=== PATIENT | female | born 1970 | race Caucasian/White ===

== ENCOUNTER 2016-08-25 18:47 | Emergency (ER) | payer OTHER ==
[~2016-08-25] VITALS: Ht 167.6 cm; Wt 84.1 kg
[~2016-08-25 18:47] MED LIST: ACAI500C PO; ALBU18HF INH; ALBU2.5V4 INHALATION; AMOX500C2 PO; CLAR250T PO; CYAN500 PO; HYDR25CA PO; KRIL1CAP12 PO; LISI-567 PO; MULT-1018 PO; OMEP20CA11 PO; OXYC1TAB24 PO; VITA100T4 PO
[2016-08-25 18:51] VITALS: BP 158/104; PULSE 96; RESP 16; O2SAT 98
--- NOTE | 2016-08-25 19:10 | ED.REPORT ---
HPI-General Illness Date of Service Aug 25, 2016 ED Provider: Tigre Ren DO A 45 year old female with a history of urosepsis, hypertension and lactose intolerance with diarrhea presents to the ED complaining of abdominal pain. The pain began just over a week ago and has continued intermittently since. The pt describes the pain as "stabbing" in the right side of her abdomen and left flank. This is accompanied by fatigue, lack of appetite, nausea, vomiting and worsened diarrhea. The pt has not taken her medications in a week due to her abdominal pain. Nursing Notes Stated Complaint: POSSIBLE KIDNEY INFECTION Chief Complaint: Female Abdominal Pain Nursing Notes Reviewed: Yes Allergies: Coded Allergies: codeine (Verified Allergy, Unknown, 08/25/16) methadone (Verified Allergy, Unknown, 08/25/16) tramadol (Verified Allergy, Unknown, 08/25/16) Scheduled Acai Cuello Extract (Acai Cuello) 500 Mg Capsule 1,000 MG PO DAILY Amoxicillin (Amoxicillin) 500 Mg Capsule 1,000 MG PO BID Clarithromycin (Clarithromycin) 250 Mg Tablet Unknown Dose PO BID Cyanocobalamin (Vitamin B12) 500 Mcg Tablet 1,000 MCG PO DAILY Krill/[place]-3/Dha/Epa/Lipids (Krill Oil 300 mg Softgel) 1 Each Capsule 1 EACH PO DAILY Lisinopril (Lisinopril) 20 Mg Tablet 20 MG PO DAILY Multivitamin (Multi Vitamin Daily) 1 Each Tablet 1 EACH PO DAILY Omeprazole (Omeprazole) 20 Mg Capsule.dr 40 MG PO DAILY Vitamin B Complex 100 No.2 (B-100 Complex) 100 Mg Tablet.er 100 MG PO DAILY Scheduled PRN Albuterol Neb Soln (Albuterol Neb Soln) 2.5 Mg/3 Ml Vial.neb 2.5 MG INHALATION Q4H PRN PRN sobn Albuterol Sulfate (Ventolin HFA Inhaler) 200 Puff/18 Gm Inhaler 2 PUFF INH Q4 PRN PRN For Wheezing Hydroxyzine Pamoate (Vistaril) 25 Mg Capsule 25 MG PO BID PRN PRN For Itching oxyCODONE-Acetaminophen 5-325 mg (oxyCODONE-Acetaminophen 5-325 mg) 1 Each Tablet 1 TAB PO Q6H PRN PRN For Pain General Time Seen by MD: 19:10 Chief Complaint Abdominal pain Hx Obtained From: Patient, Spouse Arrived By: Walk-in Sudden in Onset?: No Onset Occurred: More than a week ago... Symptom Duration: Intermittent Recent Healthcare: No recent hospitalization, Recent doctor visit Similar Sx Previous: Yes Past Medical History Past Medical History urosepsis hypertension arthritis lactose intolerance Past Surgical History bilateral knees reconstructive surgery on bilateral feet Reports: Tubal ligation Smoking History Former Smoker (quit 2012) Social History Other Social History: Good social support Ambulatory Status Independent Review of Systems loss of appetite Full Review of Systems Constitutional: Reports: Fatigue Cardiovascular: Denies: Chest pain GI: Reports: Abdominal pain, Diarrhea, Nausea, Vomiting Female: Reports: Flank pain, Denies: Dysuria Complete sys rev & neg: except as marked. Physical Exam Vital Signs Vital Signs Date Time Temp Pulse Resp B/P Pulse Ox O2 Delivery O2 Flow Rate FiO2 08/25/16 18:51 36.4 96 16 158/104 98 Room Air Initial VS: Reviewed General/Constitutional: Awake, Alert Head / Eyes: Atraumatic, Normocephalic, PERRL, EOMI ENT: Atraumatic, Airway patent, Mucous membranes moist Neck: Atraumatic, Supple, Full range of motion Respiratory / Chest: Atraumatic, Breath sounds NL, Breath sounds = bilat, No respiratory distress Cardiovascular: Heart rate NL, Regular rhythm, Heart sounds NL Abdomen: Atraumatic, Soft mild RLQ tenderness Back: Atraumatic, Full range of motion Upper Extremities Upper Extremity / MS: Atraumatic, Full range of motion Lower Extremity / Pelvis / MS: Atraumatic, Full range of motion Skin: Atraumatic, Color NL, No rash, Warm, Dry Neurologic: Oriented X3, Speech NL, No motor deficits, No sensory deficits Psychiatric: Affect NL, Mood NL Interpretation & Diagnostics Lab Results Interpretation Result Diagram: 08/25/16195308/25/161953 Test 08/25/16 19:10 08/25/16 19:54 Urine Color Yellow (YELLOW) Urine Appearance Clear (CLEAR,HAZY) Urine pH 7.0 (5.0-8.0) Urine Specific [place] 1.010 (1.003-1.035) Urine Protein 30mg/dL (NEG,TRACE) Urine Glucose (UA) Negativemg/dL (NEGATIVE) Urine Ketones Negativemg/dL (NEGATIVE) Urine Occult Blood Negative (NEGATIVE) Urine Nitrite Negative (NEGATIVE) Urine Bilirubin Negative (NEGATIVE) Urine Urobilinogen Normalmg/dL (NORMAL) Urine Leukocyte Esterase Trace (NEGATIVE) Urine RBC 0-2/hpf (0-2) Urine WBC 6-10/hpf (0-5) Urine Epithelial Cells Many/hpf (NONE-MOD) Urine Crystals None seen (NONE SEEN) Urine Bacteria Few/hpf (NONE-FEW) Urine Hyaline Casts None/lpf (NONE) Urine Granular Casts None seen (NONE SEEN) Urine Waxy Casts None seen (NONE SEEN) Urine Red Blood Cell Casts None seen (NONE SEEN) Urine White Blood Cell Casts None seen (NONE SEEN) Urine Mucus None seen (None Seen) Urine Trichomonas None seen (NONE SEEN) Urine Yeast None (NONE SEEN) Urinalysis Comment None Urine Culture Reflexed Indicated White Blood Count 9.9th/mm3 (3.8-10.1) Red Blood Count 4.58mil/mm3 (3.90-5.20) Hemoglobin 14.6g/dL (12.0-15.6) Hematocrit 42.5% (35.0-46.0) Mean Corpuscular Volume 92.8fL (81-100) Mean Corpuscular Hemoglobin 31.9pg (27.0-35.0) Mean Corpuscular Hemoglobin Concent 34.4% (32.0-37.0) Red Cell Distribution Width 13.6% (12.3-15.4) Platelet Count 270bil/L (150-400) Neutrophils (%) (Auto) 58.6% (40-74) Lymphocytes (%) (Auto) 33.8% (14-46) Monocytes (%) (Auto) 5.7% (4-12) Eosinophils (%) (Auto) 1.5% (0-5) Basophils (%) (Auto) 0.2% (0-3) Sodium Level 137mEq/L (134-144) Potassium Level 3.5mEq/L (3.5-5.2) Chloride Level 98mEq/L (97-108) Carbon Dioxide Level 26mmol/L (18-29) Blood Urea Nitrogen 11mg/dL (6-24) Creatinine 0.90mg/dL (0.57-1.00) Estimat Glomerular Filtration Rate 97mL/min (>59) Glucose Level 107mg/dL (60-99) Calcium Level 10.0mg/dL (8.5-10.1) Magnesium Level 1.8mg/dL (1.6-2.6) Total Bilirubin 0.4mg/dL (0.0-1.2) Aspartate Amino Transf (AST/SGOT) 151U/L (0-50) Alanine Aminotransferase (ALT/SGPT) 193U/L (0-32) Alkaline Phosphatase 117U/L (25-150) Total Protein 7.5g/dL (6.4-8.4) Albumin 4.5g/dL (3.4-5.0) Lipase 28U/L (13-60) Hold [place] Top Tube Received (Received) CT Abd / Pelvis Interpretation IMPRESSION: Cause of right lower quadrant pain is not identified. Enlarged fatty infiltrated liver. Prominently atrophic right kidney a 4 cm length only. Left kidney is normal. Normal appendix. No abnormality is seen in the ovaries to suggest cause of pain. No inflammatory changes or masses are seen. No hernias are seen. Dictated by: Aram Mccormick M.D. on 08/25/2016 at 21:20 Approved by: Aram Mccormick M.D. on 08/25/2016 at 21:27 Interpretation / Wet Read by: Interpret - Radiologist Re-Eval/Medical Decision Med Decision/Clinical Course Nonspecific abdominal pain. Labs are reassuring, history of fatty liver disease. Stable for discharge. Return in follow-up precautions given. Source of Hx: Old records Time of Eval: 21:36 Patient Status: Condition improved Re-Evaluation/Progress Note: Pt rechecked, who is comfortable. The diagnosis and plan for discharge are discussed. The pt understands and agrees with the plan. All questions are addressed at this time. Counseled Regarding: Diagnosis, Lab results, Need for follow-up, When/why to return to ED Discharge & Departure Primary Impression: Pain, abdominal, nonspecific Disposition: Home Discharge Condition All VS Reviewed: Yes Condition: Stable Patient Instructions: Acute Abdominal Pain (ED) Additional Instructions: All of the tests in the ER are reassuring. Follow-up with your regular doctor. Continue taking your regular medicine. Return to the ER as needed for ongoing or worsening symptoms. Referrals: Michele Medina MD (PCP) Scribe Attestation Portions of this note were transcribed by Artur Rodarte. I, Dr. Ren personally performed the history, physical exam and medical decision-making; I reviewed and confirmed the accuracy of the information in the transcribed note. Signed by: James Dao, 08/25/2016 and 2145. copies to: Michele Medina MD, Timothy S DO Aug 25, 2016 19:10 ARTUR RODARTE Aug 25, 2016 19:21
[2016-08-25] MEDS ORDERED: 0.9% Sodium Chloride 1,000 ML IV ONE (19:17)
[2016-08-25] MEDS ORDERED: Ketorolac 15 mg/mL Inj IVPUSH ONE (19:20)
[2016-08-25] MEDS ORDERED: Ondansetron 2 mg/mL 2 mL Inj IVPUSH PRN (19:20)
[2016-08-25 19:41] LABS: APPEARANCE,URINE CLEAR (CLEAR,HAZY); COLOR,URINE YELLOW (YELLOW); OCCULT BLOOD,URINE NEGATIVE (NEGATIVE); UROBILINOGEN,URINE NORMAL (NORMAL)
[2016-08-25 20:18] LABS: BASOPHILS % (AUTO) 0.2 % (0-3); EOSINOPHILS % (AUTO) 1.5 % (0-5); MONOCYTES % (AUTO) 5.7 % (4-12); Mean Corpuscular Hemoglobin 31.9 pg (27.0-35.0); Mean Corpuscular Volume 92.8 fL (81-100); NEUTROPHILS % (AUTO) 58.6 % (40-74); Platelet Count 270 bil/L (150-400)
[2016-08-25 20:30] LABS: Magnesium 1.8 mg/dL (1.6-2.6)
--- NOTE | 2016-08-25 21:29 | DRSVH ---
PROCEDURE: CT ABDOMEN AND PELVIS WITH CONTRAST ([id number]) INDICATIONS: RLQ pain, vomiting TECHNIQUE: After the administration of intravenous contrast, 5 mm thick sections acquired from the diaphragm to the symphysis. 5 mm coronal and sagittal reformats were acquired. For radiation dose reduction, the following was used: automated exposure control, adjustment of mA and/or kV according to patient siz e. COMPARISON: None. FINDINGS: Image quality: Excellent. ABDOMEN: Lung bases: Lung bases are clear. Heart size is normal. Solid organs: The liver is enlarged. Fatty infiltration of the liver is present. Spleen is normal. Ga llbladder is within normal limits. Biliary system is non dilated. Pancreas enhances normally. There is a 14 mm nodule in the left adrenal. Hounsfield units indicate it is of indeterminate significance . The right kidney measuring 4 cm in greatest length it is atrophic. The left kidney is normal in [place] ear[place]. Peritoneum and bowel: Bowel loops demonstrate normal wall thickness and caliber. No free fluid or a ir. The appendix is normal. Nodes and vessels: No retroperitoneal or mesenteric adenopathy by size criteria. Aorta and inferior vena cava are normal in size. Miscellaneous: No ventral hernias. PELVIS: Genitourinary: Bladder wall thickness is normal. Uterus and ovaries are normal in size and appearanc e on CT Miscellaneous: No inguinal hernias or adenopathy. Bones: No suspicious bony lesions. No vertebral body compression fractures. IMPRESSION: Cause of right lower quadrant pain is not identified. Enlarged fatty infiltrated liver. Prominently atrophic right kidney a 4 cm length only. Left kidney is normal. Normal appendix. No abnormality is seen in the ovaries to suggest cause of pain. No inflammatory james ges or masses are seen. No hernias are seen. Dictated by: Aram Mccormick M.D. on 08/25/2016 at 21:20 Approved by: Aarm Mccormick M.D. on 08/25/2016 at 21:27
[2016-08-26 00:16] VITALS: BP 151/97; PULSE 105; RESP 16; O2SAT 97
== END 2016-08-25 21:53 | disposition home or self-care (01) ==
LOC: SED 18:47
DX: R10.31 Right lower quadrant pain (principal); R53.83 Other fatigue; F50.89 Other specified eating disorder; R11.2 Nausea with vomiting, unspecified; R19.7 Diarrhea, unspecified; I10 Essential (primary) hypertension; E73.8 Other lactose intolerance; Z86.19 Personal history of other infectious and parasitic diseases; Z87.891 Personal history of nicotine dependence; Z88.5 Allergy status to narcotic agent; Z88.8 Allergy status to other drugs, medicaments and biological substances
CPT/HCPCS: 36415; 74177; 80053; 81000; 81025; 83690; 83735; 85025; 87086; 87088; 96361; 96374; 96375; 99285; J1885; J2405; J7030; Q9967